=== PATIENT | female | born 1990 | race Caucasian/White ===

== ENCOUNTER → 2020-09-19 12:04 | Outpatient (CLI) | payer OTHER, SELFPAY ==
[2020-09-19 14:01] LABS: HCG,Quantitative 60472 mIU/ml (0-5.42)
== END ==
PROVIDERS: Visit Provider Obstetrics & Gynecology
DX: Z34.90 Encounter for supervision of normal pregnancy, unspecified, unspecified trimester (principal)
CPT/HCPCS: 36415; 84702

== ENCOUNTER → 2020-09-21 11:55 | Outpatient (CLI) | payer OTHER, SELFPAY | PROVIDERS: Visit Provider Obstetrics & Gynecology | DX: Z34.90 Encounter for supervision of normal pregnancy, unspecified, unspecified trimester (principal) | CPT/HCPCS: 36415; 84702 ==

== ENCOUNTER → 2020-10-07 13:00 | Outpatient (CLI) | payer OTHER, SELFPAY ==
--- NOTE | 2020-10-07 13:00 | US_ITS ---
PROCEDURE: US OB <= 14 WEEKS FETUS CLINICAL INDICATION: dates COMPARISON: No exams were available for comparison FINDINGS: An intrauterine gestational sac is present with a pole with a crown-rump length of 3.71cm correlating to gestational age of 10weeks 5days. heart tones are present with an FHR of 164bpm. Yolk sac is noted. There is a normal amount amniotic fluid noted. Both ovaries appear normal in size, the right ovary is slightly hyperechoic compared left. IMPRESSION: Viable early intrauterine gestation approximate age 10 weeks and 5 days Estimated due date by Ultrasound is 04/30/2021 Dictated by: Dr. Cordell Tejada MD 10/07/2020 14:44 Dr. Cordell Tejada MD in [place] 10/07/2020 14:44
== END ==
PROVIDERS: PCP Obstetrics & Gynecology; Visit Provider Obstetrics & Gynecology
DX: Z34.90 Encounter for supervision of normal pregnancy, unspecified, unspecified trimester (principal)
CPT/HCPCS: 76801

== ENCOUNTER → 2020-11-15 14:03 | Outpatient (CLI) | payer OTHER, SELFPAY ==
[2020-11-15 14:38] LABS: Basophils % 0.2 % (0.1-2.0); Eosinophils # 0.1 K/mm3 (0.0-0.4); Eosinophils % 1.4 % (0.1-12.0); Hematocrit 34.7 % (37.0-47.0); Hemoglobin 11.8 g/dL (12.2-16.2); Lymphocytes # 2.2 K/mm3 (0.7-4.5); Lymphocytes % 22.3 % (10-50); Mean Corpuscular HGB Conc 34.1 g/dL (31.8-35.4); Mean Corpuscular Hemoglobin 26.1 pg (27.0-31.2); Mean Corpuscular Volume 76.5 fl (81-99); Mean Platelet Volume 9.6 fl (7.4-10.4); Monocytes # 0.4 K/mm3 (0.1-1.0); Monocytes % 4.2 % (1.7-9.3); Neutrophils % 71.8 % (37.0-80.0); Platelet Count 246 K/mm3 (142-424); Red Blood Count 4.54 M/mm3 (4.20-5.40); Red Cell Distribution Width 16.5 % (11.5-17.5); White Blood Count 9.8 K/mm3 (4.8-10.8)
[2020-11-17 05:30] LABS: HIV Screen 4th Generation wRfx Non Reactive (Non Reactive)
[2020-11-17 10:25] LABS: Hepatitis B Surface Antigen Negative (Negative); Hepatitis C Antibody <0.1 s/co ratio (0.0-0.9); Rubella Antibodies, IgG <0.90 index (Immune >0.99)
[2020-11-17 13:31] LABS: Rapid Plasma Reagin Ab Titer Non Reactive (NonRea<1:1)
== END ==
PROVIDERS: Visit Provider Obstetrics & Gynecology
DX: Z34.90 Encounter for supervision of normal pregnancy, unspecified, unspecified trimester (principal)
CPT/HCPCS: 36415; 85025; 86592; 86703; 86762; 86850; 87340; 87380; G0432

== ENCOUNTER → 2020-12-16 12:39 | Outpatient (CLI) | payer OTHER, SELFPAY ==
--- NOTE | 2020-12-16 12:39 | US_ITS ---
PROCEDURE: US OB >= 14 WEEKS FETUS CLINICAL INDICATION: OB complete Anatomy evaluation COMPARISON: US US OB <= 14 WEEKS FETUS from 10/07/2020 FINDINGS: There is a single live fetus in breech presentation. heart and body motion is noted. Placenta is anterior, grade 1, and low lying. The inferior tip is approximately 1.6 cm from the cervical os. Complete survey performed and was unremarkable on the submitted images as in PACS. No discrete anomalies identified on survey imaging by technologist. Active fetus. Three-vessel cord with satisfactory umbilical cord insertion. 4- chamber heart noted. Survey of brain & ventricles Unremarkable. Face and neck survey unremarkable. Diaphragm and chest views unremarkable. Abdomen: Both kidneys noted and unremarkable. Stomach noted and satisfactory. Spine: Survey of the spine satisfactory with no anomalies identified nor imaged. Both arms and legs noted. Amniotic Fluid: Adequate. Maternal adnexa: No significant findings. Measurements: Average ultrasound age 21weeks. Gestational Age 21weeks Estimated due date by ultrasound age 1204/28/2021. Estimated weight 372g BPD = 21weeks 4days OFD = 21weeks 5days HC = 21weeks AC = 21weeks 4days FL = 19weeks 5days Growth Percentile= 40% Heart Rate = 140bpm Cerebellum = 21weeks 1day Humerus = 21weeks 4days HC/AC is 1.13 CI is 0.77 FL/BPD is 0.61 FL/AC is 0.19 IMPRESSION: Live intrauterine gestation in breech presentation with an average ultrasound age 21 weeks. No obvious anomalies. Anterior low-lying placenta. Please see above for detail Dictated by: Rhett Damian MD 12/16/2020 14:46 Rhett Damian MD in [place] 12/16/2020 14:46
== END ==
PROVIDERS: PCP Nurse Practitioner; Visit Provider Obstetrics & Gynecology
DX: Z34.90 Encounter for supervision of normal pregnancy, unspecified, unspecified trimester (principal)
CPT/HCPCS: 76805

== ENCOUNTER 2021-03-28 13:11 | Outpatient (CLI) | payer OTHER, SELFPAY ==
[2021-03-28 13:42] VITALS: BP 119/83; PULSE 100; RESP 18; TEMP 36.6; O2SAT 96; BMI 44.9
[2021-03-28 16:03] LABS: Microscopic, Urine URINE MICROSCOPIC (MICROSCOPIC)
[2021-03-28 18:47] LABS: Appearance,Urine SL CLOUDY (Clear); Bilirubin,Urine Negative (Negative); Blood, Urine Negative (Negative); Color,Urine DK YELLOW (Yellow); Glucose,Urine (UA) Negative (Negative); Ketones,Urine Negative (Negative); Leukocyte Esterase,Urine Negative (Negative); Nitrate,Urine Negative (Negative); PH,Urine 6.5 (5.0-8.5); Protein,Urine TRACE (Negative)
[2021-03-28 19:40] LABS: Bacteria,Urine 1+ /lpf; RBC,Urine Occasional #/hpf (0-3)
[2021-03-28 22:27] LABS: Amphetamine/Metha Screen,Urine Negative ng/ml (<1000)
[2021-03-28 22:28] LABS: Barbiturates Screen,Urine Negative ng/ml (<200)
[2021-03-28 22:30] LABS: Benzodiazepines Screen,Urine Negative ng/ml (<200); Cannabinoid Screen,Urine Positive ng/ml (<50)
[2021-03-28 22:31] LABS: Cocaine Screen,Urine Negative ng/ml (<300)
[2021-03-28 22:32] LABS: Methadone Screen,Urine Negative ng/ml (<300); Opiate Screen,Urine Negative ng/ml (<300)
[2021-03-28 22:33] LABS: Phencyclidine Screen,Urine Negative ng/ml (<25)
== END 2021-03-28 14:45 | disposition home or self-care (01) ==
LOC: OBOUT 13:13 → OB 13:14
PROVIDERS: PCP Nurse Practitioner; Visit Provider Obstetrics & Gynecology
DX: O26.893 Other specified pregnancy related conditions, third trimester (principal); Z3A.35 35 weeks gestation of pregnancy; R10.2 Pelvic and perineal pain; R11.2 Nausea with vomiting, unspecified; W19.XXXA Unspecified fall, initial encounter
CPT/HCPCS: 59025; 80305; 81001; G0463

== ENCOUNTER → 2021-03-31 15:14 | Outpatient (CLI) | payer OTHER, SELFPAY | PROVIDERS: Visit Provider Obstetrics & Gynecology | DX: Z34.90 Encounter for supervision of normal pregnancy, unspecified, unspecified trimester (principal) | CPT/HCPCS: 86403 ==

== ENCOUNTER → 2021-04-11 15:45 | Outpatient (CLI) | payer OTHER, SELFPAY | PROVIDERS: Visit Provider Obstetrics & Gynecology | DX: Z20.822 Contact with and (suspected) exposure to COVID-19 (principal) | CPT/HCPCS: C9803; U0003; U0005 ==

== ENCOUNTER 2021-04-13 04:34 | Inpatient (IN) | payer OTHER, SELFPAY ==
[2021-04-13 04:43] VITALS: BMI 47.4
[2021-04-13 06:16] LABS: Coronavirus 19, PCR Not Detected (NotDetected); Influenza A, PCR Not Detected (NotDetected); Influenza B, PCR Not Detected (NotDetected)
[2021-04-13 06:16] LABS: Microscopic, Urine URINE MICROSCOPIC (MICROSCOPIC)
[2021-04-13 06:17] VITALS: BP 129/81; PULSE 115; RESP 18; TEMP 36.6; O2SAT 98; BMI 47.4
[2021-04-13 06:24] LABS: Appearance,Urine CLEAR (Clear); Bilirubin,Urine Negative (Negative); Blood, Urine Negative (Negative); Color,Urine YELLOW (Yellow); Glucose,Urine (UA) Negative (Negative); Ketones,Urine Negative (Negative); Leukocyte Esterase,Urine Negative (Negative); Nitrate,Urine Negative (Negative); Protein,Urine Negative (Negative); Specific Gravity, Urine 1.025 (1.005-1.030); Urobilinogen,Urine 0.2 EU/dl (0.2)
[2021-04-13 06:26] LABS: Basophils # 0.1 K/mm3 (0-0.2); Basophils % 0.4 % (0.1-2.0); Eosinophils # 0.1 K/mm3 (0.0-0.4); Eosinophils % 0.6 % (0.1-12.0); Hematocrit 30.4 % (37.0-47.0); Hemoglobin 10.2 g/dL (12.2-16.2); Lymphocytes # 2.8 K/mm3 (0.7-4.5); Lymphocytes % 23.1 % (10-50); Mean Corpuscular HGB Conc 33.4 g/dL (31.8-35.4); Mean Corpuscular Hemoglobin 24.5 pg (27.0-31.2); Mean Corpuscular Volume 73.2 fl (81-99); Monocytes # 0.5 K/mm3 (0.1-1.0); Monocytes % 4.1 % (1.7-9.3); Neutrophils # 8.8 K/mm3 (1.8-7.8); Neutrophils % 71.7 % (37.0-80.0); Platelet Count 421 K/mm3 (142-424); Red Blood Count 4.16 M/mm3 (4.20-5.40); Red Cell Distribution Width 15.6 % (11.5-17.5); White Blood Count 12.2 K/mm3 (4.8-10.8)
[2021-04-13 06:36] LABS: Amphetamine/Metha Screen,Urine Negative ng/ml (<1000)
[2021-04-13 06:37] LABS: Barbiturates Screen,Urine Negative ng/ml (<200)
[2021-04-13 06:38] LABS: Benzodiazepines Screen,Urine Negative ng/ml (<200); Cannabinoid Screen,Urine Negative ng/ml (<50)
[2021-04-13 06:39] LABS: Cocaine Screen,Urine Negative ng/ml (<300)
[2021-04-13 06:40] LABS: Methadone Screen,Urine Negative ng/ml (<300); Opiate Screen,Urine Negative ng/ml (<300)
[2021-04-13 06:41] LABS: Phencyclidine Screen,Urine Negative ng/ml (<25)
[2021-04-13 07:30] VITALS: BP 107/78; PULSE 94; RESP 20; TEMP 36.8; O2SAT 100
--- NOTE | 2021-04-13 09:05 | HMH.HP ---
*Admission Date: 04/13/21 *Chief complaint: induction of labor *History of present illness: 30 yo @ 37 4/7 presented for induction of labor Elevated blood pressure over the past 2 weeks and scheduled for induction of labor with gestational hypertenstion complicated by insufficient care Irregular contractions, no leakage of fluid or vaginal bleeding testing with gestational hypertension reassuring [facility] History I have reviewed the patient's past medical history: Yes Medical History: Denies:: Diabetes Mellitus Type 1, Diabetes Mellitus Type 2 *Have you ever received a pneumonia vaccine?: No *Have you received a flu vaccine this season?: No Other Surgeries: Yes: No Previous Surgery. No: Amputation: No Fractures: No - *Social History Smoking Status: Current every day smoker # Packs/Day (cigarettes): 1 Alcohol Intake: never Substance Use Type: denies use *Occupational Status:: unemployed *Travel in the last 8 weeks: None Family Hx:: No significant family history : 3 Para: 2 Review of Systems - Review of Systems Review of systems:: pertinent systems reviewed and negative unless documented below - *Genitourinary Denies abnormal vaginal bleeding Meds Home Medications Medication Instructions Recorded Confirmed Type docosahexaenoic acid 200 mg capsule 200 mg PO DAILY 11/15/20 04/13/21 History Allergies Allergy/AdvReac Type Severity Reaction Status Date / Time Penicillins [PENICILLINS] Allergy Unknown Verified 04/11/21 15:07 Exam Vital signs and Labs for Last 24 Hours: Temp Pulse Resp BP Pulse Ox 98.2 F 94 H 20 107/78 L 100 04/13/21 07:30 04/13/21 07:30 04/13/21 07:30 04/13/21 07:30 04/13/21 07:30 Laboratory Results - last 24 hr 04/13/21 04:49: Urine Color Yellow, Urine Appearance Clear, Urine pH 6.0, Ur Specific Rudolph 1.025, Urine Protein Negative, Urine Glucose (UA) Negative, Urine Ketones Negative, Urine Blood Negative, Urine Nitrate Negative, Urine Bilirubin Negative, Urine Urobilinogen 0.2, Ur Leukocyte Esterase Negative, Urine RBC None, Urine WBC 3-5, Ur Squamous Epith Cells 3-5, Urine Bacteria None 04/13/21 04:49: Urine Opiates Screen Negative, Urine Methadone Screen Negative, Ur Barbituates Screen Negative, Ur Phencyclidine Scrn Negative, Ur Amphetamines Screen Negative, U Benzodiazepines Scrn Negative, Urine Cocaine Screen Negative, U Marijuana (THC) Screen Negative 04/13/21 05:28: WBC 12.2 H, RBC 4.16 L, Hgb 10.2 L, Hct 30.4 L, MCV 73.2 L, MCH 24.5 L, MCHC 33.4, RDW 15.6, Plt Count 421, MPV 9.0, Neut % (Auto) 71.7, Lymph % (Auto) 23.1, [place] % (Auto) 4.1, Eos % (Auto) 0.6, Baso % (Auto) 0.4, Neut # (Auto) 8.8 H, Lymph # (Auto) 2.8, [place] # (Auto) 0.5, Eos # (Auto) 0.1, Baso # (Auto) 0.1 04/13/21 05:28: SARS-CoV-2 (PCR) Not detected, Influenza A Untype (PCR) Not detected, Influenza Type B (PCR) Not detected 04/13/21 05:28: Blood Type A Positive, Antibody Screen Negative, Crossmatch (AHG) See Detail I & O for Last 24 hours: Intake & Output 04/11/21 04/12/21 04/13/21 04/14/21 11:59 11:59 11:59 11:59 Weight 285 lb - Constitutional no acute distress - *Routine HEENT Exam Head: Present: normocephalic Eye: Absent: conjunctival icterus ENT: Present: mucous membranes moist - *Routine Neck Exam Present: supple. Absent: lymphadenopathy - *Routine Respiratory Exam Present: CTA bilaterally - *Routine Cardiovascular Exam Present: RRR - *Routine Abdominal Exam Present: soft, normoactive bowel sounds. Absent: tenderness - *Routine Rectal Exam Rectal:: deferred - *Routine Genitalia Exam Genitalia:: normal female Comment:: cervix 3/50/-2 AROM with clear fluid IUPC and FSE placed without difficulty or complication - *Routine Extremities Exam Absent: cyanosis, clubbing, edema - *Routine Skin Exam Present: warm. Absent: rash - *Routine Neurological Exam Present: alert, oriented X3 Assessment and Plan
--- NOTE | 2021-04-13 14:12 | HMH.LABNOT ---
Labor Note - Subjective: Date: 04/13/21 Time: 14:12 Comment:: regular contractions cervix 7cm comfortable with epidural tracing reassuring - Objective: Cervical Dilation:: 7 Effacement:: 90% - Assessment: Patient Problems: All Active Problems Tobacco smoking affecting (Acute) Morbid obesity with BMI of 45.0-49.9, adult (Acute) 37 weeks gestation of (Acute) Gestational hypertension (Acute) Insufficient care (Acute) Low lying placenta, antepartum (Acute) tubal ligation planned (Acute) (Acute) Acute otitis media (Acute) Dizziness (Acute) - Plan: Comment:: continue pitocin augmentation anticipate
--- NOTE | 2021-04-13 17:08 | HMH.DN ---
- Delivery Note Delivery Date:: 04/13/21 Delivery Time:: 16:38 Anesthesia Type: Epidural Was labor medically induced?: Yes Induction method: per pitocin protocol Gestational age (weeks): 37 delivered prior to 39 weeks?: Yes Justification for early elective delivery:: Gestational Hypertension Infant Gender: Male at 1 minute: 8 at 5 minutes: 9 Delivery Procedure:: Spontaneous vaginal delivery of liveborn male over intact perineum. Delivery uncomplicated Nuchal cord x 2 reduced at time of delivery; no shoulder dystocia with delivery Infant taken to warmer immediately after delivery, with standard nursing assessment performed Infant Apgars: 8 & 9 Placenta spontaneously expressed and examined; noted to be complete/intact. Vulva, vagina, and cervix inspected; no lacerations present EBL: 300 cc All sponge/needle/instrument counts correct at conclusion of procedure Placental Delivery Description: Spontaneous
[2021-04-14 06:53] LABS: Hematocrit 28.4 % (37.0-47.0); Hemoglobin 9.2 g/dL (12.2-16.2)
[2021-04-14 08:15] VITALS: BP 120/63; PULSE 92; RESP 20; TEMP 36.5; O2SAT 100
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
--- NOTE | 2021-04-14 12:44 | P.PN_ITS ---
Internal Medicine - PN: Subj *Date: 04/14/21 *Time: 12:44 Interval history: PPD #1 No unusual complaints Tolerating regular diet Ambulating and voiding without difficulty lochia appropriate asymptomatic with [id number] anemia Exam Vital signs and Labs for Last 24 Hours: Temp Pulse Resp BP Pulse Ox 97.7 F 92 H 20 120/63 100 04/14/21 08:15 04/14/21 08:15 04/14/21 08:15 04/14/21 08:15 04/14/21 08:15 Laboratory Results - last 24 hr 04/14/21 06:31: Hgb 9.2 L, Hct 28.4 L I & O for Last 24 hours: Intake & Output 04/12/21 04/13/21 04/14/21 04/15/21 11:59 11:59 11:59 11:59 Output Total 1000 / 1000 Balance -1000 / -1000 Weight 285 lb Narrative: CONSTITUTIONAL: no acute distress HEENT: mucous membranes moist PULMONARY: breathing unlabored without audible wheezes CV: no tachycardia or visible JVD; normal LE peripheral pulses ABD: soft, NT/ND, no guarding : fundus firm below umbilicus SKIN: no visible rash or lesions EXT: 1+ edema LEs NEURO: alert/oriented, no altered mental status PSYCH: appropriate mood and demeanor Assessment and Plan (1) 37 weeks gestation of Status: Acute Category: Medical Code(s): Z3A.37 - 37 weeks gestation of (2) Insufficient care Status: Acute Category: Medical Code(s): O09.30 - Supervision of with insufficient care, unspecified trimester (3) Gestational hypertension Status: Acute Category: Medical Code(s): O13.9 - Gestational [- induced] hypertension without significant proteinuria, unspecified trimester (4) Morbid obesity with BMI of 45.0-49.9, adult Status: Acute Category: Medical Code(s): E66.01 - Morbid (severe) obesity due to excess calories; Z68.42 - Body mass index [BMI] 45.0-49.9, adult (5) Tobacco smoking affecting Status: Acute Category: Medical Code(s): O99.330 - Smoking (tobacco) complicating , unspecified trimester (6) Vaginal delivery Status: Acute Category: Medical Code(s): O80 - Encounter for full-term uncomplicated delivery - Assessment and plan all Dx Assessment and Plan for all problems:: Routine care Continue PNV with FeSO4 Anticipate discharge home tomorrow
[2021-04-14 16:19] VITALS: BP 114/62; PULSE 77; RESP 18; TEMP 36.8; O2SAT 98
--- NOTE | 2021-04-15 10:44 | P.PN_ITS ---
Internal Medicine - PN: Subj *Date: 04/15/21 *Time: 10:44 (This is day #1. The patient is afebrile. Vital signs stable. Wound clean. Abdomen soft. Globin 10.2 g. Lochia normal. Breast- feeding well. Blood pressures have remained stable since delivery. Impression: Stable. Plan: Discharge today.) Exam Vital signs and Labs for Last 24 Hours: Temp Pulse Resp BP Pulse Ox 98.3 F 77 18 114/62 98 04/14/21 16:19 04/14/21 16:19 04/14/21 16:19 04/14/21 16:19 04/14/21 16:19 I & O for Last 24 hours: Intake & Output 04/12/21 04/13/21 04/14/21 04/15/21 11:59 11:59 11:59 11:59 Output Total 1000 / 1000 Balance -1000 / -1000 Weight 285 lb Assessment and Plan (1) 37 weeks gestation of Status: Acute Category: Medical Code(s): Z3A.37 - 37 weeks gestation of (2) Insufficient care Status: Acute Category: Medical Code(s): O09.30 - Supervision of with insufficient care, unspecified trimester (3) Gestational hypertension Status: Acute Category: Medical Code(s): O13.9 - Gestational [- induced] hypertension without significant proteinuria, unspecified trimester (4) Morbid obesity with BMI of 45.0-49.9, adult Status: Acute Category: Medical Code(s): E66.01 - Morbid (severe) obesity due to excess calories; Z68.42 - Body mass index [BMI] 45.0-49.9, adult (5) Tobacco smoking affecting Status: Acute Category: Medical Code(s): O99.330 - Smoking (tobacco) complicating , unspecified trimester (6) Vaginal delivery Status: Acute Category: Medical Code(s): O80 - Encounter for full-term uncomplicated delivery
--- NOTE | 2021-04-15 10:47 | HMH.DCSUM ---
General - General Admission date:: 04/13/21 Discharge date: 04/15/21 (This 30-year-old 4, now para 3, AB 1 obese white female was admitted at 37 4/7 weeks for induction because of gestational hypertension. She delivered spontaneously on 04/13/2021 at 1638. The baby was an 8/9, 5 pound 15 ounce 18 inch male infant, who is breast-feeding and is done well. Since delivery, the patient's blood pressures have been stable (114/58 at this time), and she has done well. She is eating and ambulating, and has passed flatus. Her lochia is normal. Her uterine fundus has involuted well. Her abdomen is soft. She is discharged home on the first day on iron and vitamins, and on Tylenol and Motrin, as needed for pain. She is given appropriate instructions as to diet, exercise, and perineal care, and she is to return to Dr. Boswell's office as scheduled for care. Her blood type is A+. Her rubella titer is nonimmune, and she has been vaccinated prior to discharge.) HPI HPI: 30 yo @ 37 4/7 presented for induction of labor Elevated blood pressure over the past 2 weeks and scheduled for induction of labor with gestational hypertenstion complicated by insufficient care Irregular contractions, no leakage of fluid or vaginal bleeding testing with gestational hypertension reassuring Hospital Course Rhogam Administration: Not Indicated Objective Vital signs: Temp Pulse Resp BP Pulse Ox 98.3 F 77 18 114/62 98 04/14/21 16:19 04/14/21 16:19 04/14/21 16:19 04/14/21 16:19 04/14/21 16:19 DS: Diagnosis - Discharge Diagnosis (1) 37 weeks gestation of Status: Acute (2) Insufficient care Status: Acute (3) Gestational hypertension Status: Acute (4) Morbid obesity with BMI of 45.0-49.9, adult Status: Acute (5) Tobacco smoking affecting Status: Acute (6) Vaginal delivery Status: Acute Discharge Plan - Patient Discharge Instructions DIET: advance to your usual diet Additional Instructions: Nothing in the vagina for 6 weeks. No heavy lifting or strenuous activity. Patient Instructions: Depression, Hemorrhage, DI for Labor and Delivery, Vaginal , DI for Pre-eclampsia, [facility] Post Discharge Instructions, Preventing the Spread of Coronavirus Discharge Instructions - Follow up Plan Follow up with: Albertina Boswell MD [Staff Physician] - 05/26/21 9:30 am Condition at discharge:: Stable Home Medications: Home Medications Medication Instructions Recorded Confirmed Type docosahexaenoic acid 200 mg capsule 200 mg PO DAILY 11/15/20 04/13/21 History Prescriptions/Medication Reconciliation: Continued docosahexaenoic acid 200 mg capsule 200 mg PO DAILY - Problem Reconciliation Problems Reviewed?: Yes
== END 2021-04-15 11:35 | disposition home or self-care (01) | DRG 807 ==
PROVIDERS: Admitting Provider Obstetrics & Gynecology; Visit Provider Obstetrics & Gynecology
DX: O13.3 Gestational [pregnancy-induced] hypertension without significant proteinuria, third trimester (principal); Z37.0 Single live birth; Z3A.37 37 weeks gestation of pregnancy; O99.330 Smoking (tobacco) complicating pregnancy, unspecified trimester; F17.210 Nicotine dependence, cigarettes, uncomplicated; O69.81X0 Labor and delivery complicated by cord around neck, without compression, not applicable or unspecified
CPT/HCPCS: 59409; 59025; 80305; 81001; 85014; 85018; 85025; 86850; 90707; 94761; C1758; C9803; G0283; U0003; U0005

== ENCOUNTER 2022-08-27 01:48 | Emergency (ER) | payer OTHER, SELFPAY ==
[2022-08-27 01:49] VITALS: BP 136/91; PULSE 78; RESP 16; TEMP 36.5; O2SAT 98; BMI 38.7
[2022-08-27 02:01] LABS: Microscopic, Urine URINE MICROSCOPIC (MICROSCOPIC)
--- NOTE | 2022-08-27 02:01 | CT_ITS ---
PROCEDURE INFORMATION: Exam: CT Abdomen And Pelvis Without Contrast Exam date and time: 08/27/2022 2:18 AM Age: 31 years old Clinical indication: Abdominal pain; Flank; Left; Additional info: Left abd, flank pain TECHNIQUE: Imaging protocol: Computed tomography of the abdomen and pelvis without contrast. Radiation optimization: All CT scans at this facility use at least one of these dose optimization techniques: automated exposure control; mA and/or kV adjustment per patient size (includes targeted exams where dose is matched to clinical indication); or iterative reconstruction. REPORTING DATA: Count of CT and Cardiac NM exams in prior 12 months: This patient has received 0 known CTs and 0 known cardiac nuclear medicine studies in the 12 months prior to the current study. COMPARISON: No relevant recent comparison exams. FINDINGS: Pancreaticohepatobiliary: Liver: Enlarged liver shows mild diffuse fatty infiltration. No significant intra-or extrahepatic ductal dilation. Gallbladder: Unremarkable without obvious gallstones. Pancreas: Normal in size normal in size and attenuation without peripancreatic fluid or obvious mass. Spleen: Normal in size and attenuation. . Genitourinary: Adrenal gland: No adrenal mass. Kidneys: Punctate 1-2 mm nonobstructive LEFT renal calculus. 3-4 mm mid LEFT ureteric calculus with mild LEFT sided hydronephrosis and hydroureter. Kidneys are otherwise unremarkable. Urinary bladder: Empty urinary bladder. Uterus/ovaries: Uterus is normal, RIGHT ovarian dermoid measuring 4.1 x 4.2 cm. No free fluid in the pelvis. . Gastrointestinal: Bowel: A few colonic diverticula. Note is made of a small hiatal hernia. Prominent air and fluid-filled loops of proximal small bowel in the LEFT upper abdomen likely within normal limits. No free intraperitoneal air or fluid collection. Appendix: A normal APPENDIX is visualized. . Other findings: Aorta: Aorta appears unremarkable without evidence of aortic aneurysm. Lymph nodes: No bulky lymph node enlargement. Soft tissues: Small periumbilical hernia containing fat. IMPRESSION: 1. Obstructive MID LEFT ureteric calculus. 2. Numerous other nonemergent/incidental findings as described. COMMENT: Suboptimal evaluation of bowel loops and abdominal organs due to lack of intravenous and oral contrast.
--- NOTE | 2022-08-27 02:03 | HMH.EDGENADL ---
Discharge Plan Disposition Patient Disposition: Home, Self-Care Condition: Good Prescriptions Prescriptions: New tamsulosin [Flomax] 0.4 mg capsule 0.4 mg PO DAILY Qty: 10 0RF ketorolac 10 mg tablet 10 mg PO Q8H PRN (Reason: pain) Qty: 14 0RF ondansetron 4 mg tablet,disintegrating 4 mg PO Q8H PRN (Reason: nausea and vomiting) 3 Days Qty: 14 0RF hydrocodone-acetaminophen 5-325 mg tablet 1 tab PO Q6H Qty: 14 0RF No Action DHA 200 mg capsule 200 mg PO DAILY Referrals Follow up/Referrals: Yuli Oh APRN [Primary Care Provider] - See instructions Clinical Impressions Clinical Impression: Kidney stone, Dermoid cyst of ovary Instructions Patient Instructions: Kidney Stones -- Adult, DI for Acute Abdominal Pain Print Language Print Language: Peruvian Discharge ED Provider: Isidro Singh General Adult HPI General Chief complaint: Abdominal Pain Stated complaint: Left lower back pain radiating to stomach; vomitin Time Seen by Provider: 08/27/22 04:13 Mode of Arrival: Ambulatory Source of Information: Patient Limitations: No Limitations Description of Symptoms (Recalled from ER Triage Doc. by RN): pt c/o lt flank pain radiating to LLQ and vomitting for one hour prior to arrival History of Present Illness HPI narrative: Patient presents to the emergency department with left-sided abdominal pain which extends into her left flank which started approximate hour prior to arrival. The patient denies any fever, chills, cough or congestion. She does describe nausea, vomiting. Denies any dysuria, hematuria or frequency. Patient states she has had no diarrhea or constipation. Related Data Home Medications Medication Instructions Recorded Confirmed docosahexaenoic acid 200 mg 200 mg PO DAILY Supplement 11/15/20 04/13/21 capsule ( DHA) Previous Rx's Medication Instructions Recorded hydrocodone 5 mg-acetaminophen 325 1 tab PO Q6H #14 tabs 08/27/22 mg tablet ketorolac 10 mg tablet 10 mg PO Q8H PRN pain #14 tabs 08/27/22 ondansetron 4 mg disintegrating 4 mg PO Q8H PRN nausea and 08/27/22 tablet vomiting 3 days #14 tabs tamsulosin 0.4 mg capsule (Flomax) 0.4 mg PO DAILY #10 caps 08/27/22 Allergies Allergy/AdvReac Type Severity Reaction Status Date / Time Penicillins [PENICILLINS] Allergy Unknown Verified 04/11/21 15:07 [facility] Disclaimer: The information contained in this section may have been updated after the patient was seen, as this information can be updated by other users. Social History Smoking Status: Current every day smoker alcohol intake: never substance use type: denies use current occupational status: unemployed Travel in the last 8 weeks: None ROS Obtained: Yes All systems reviewed & no additional complaints except as documented Gastrointestinal Gastrointestingal: Reports abdominal pain, nausea and vomiting Physical Exam General General appearance: alert and other (Obese, uncomfortable appearing) Head Head exam: atraumatic and normocephalic Eye Eye exam: Present normal appearance, PERRL and EOMI Respiratory Respiratory exam: Present normal lung sounds bilaterally Cardiovascular Cardiovascular exam: Present regular rate, normal rhythm and normal heart sounds Abdominal Exam Abdominal exam: Present other (Soft, nondistended, left upper and left lower quadrant abdominal tenderness with guarding. No rebound. Normal bowel sounds.) Extremities Exam Extremities exam: Present normal inspection and full ROM Neurological Exam Neurological exam: Present alert and oriented X3 Psychiatric Psychiatric exam: Present normal affect and normal mood Medical Decision Making Medical Records Medical records reviewed: Yes I reviewed the patient's medical records. Hao Inquiry Pt receiving controlled substance: No Vital Signs: 08/27/22 01:49 Temperature 97.7 F Temp
[2022-08-27 02:04] LABS: Appearance,Urine CLEAR (Clear); Bilirubin,Urine Negative (Negative); Blood, Urine 3+ (Negative); Color,Urine YELLOW (Yellow); Glucose,Urine (UA) Negative (Negative); Ketones,Urine Negative (Negative); Leukocyte Esterase,Urine Negative (Negative); Nitrate,Urine Negative (Negative); PH,Urine 6.5 (5.0-8.5); Protein,Urine Negative (Negative); Urobilinogen,Urine 0.2 EU/dl (0.2)
[2022-08-27 02:05] LABS: Urine Pregnancy, HCG Qual. Negative (Negative)
[2022-08-27 02:10] LABS: Basophils % 0.3 % (0.1-2.0); Eosinophils # 0.2 K/mm3 (0.0-0.4); Eosinophils % 1.3 % (0.1-12.0); Lymphocytes # 3.3 K/mm3 (0.7-4.5); Lymphocytes % 24.4 % (10-50); Mean Corpuscular HGB Conc 32.4 g/dL (31.8-35.4); Mean Corpuscular Hemoglobin 26.2 pg (27.0-31.2); Mean Platelet Volume 8.7 fl (7.4-10.4); Monocytes # 0.6 K/mm3 (0.1-1.0); Monocytes % 4.4 % (1.7-9.3); Neutrophils # 9.5 K/mm3 (1.8-7.8); Neutrophils % 69.5 % (37.0-80.0); Platelet Count 376 K/mm3 (142-424); Red Blood Count 4.94 M/mm3 (4.20-5.40); Red Cell Distribution Width 14.6 % (11.5-17.5); White Blood Count 13.6 K/mm3 (4.8-10.8)
[2022-08-27 02:17] LABS: Alanine Aminotransferase 28 U/L (12-78); Albumin Level 4.5 g/dl (3.5-5.0); Albumin/Globulin Ratio 1.4 (1.1-1.8); Alkaline Phosphatase 69 U/L (38-126); Anion Gap 7.8 mEq/L (5-15); Aspartate Amino Transferase 34 U/L (14-36); Bilirubin,Total 0.3 mg/dl (0.2-1.3); Blood Urea Nitrogen 16 mg/dl (7-17); Calcium 9.2 mg/dl (8.4-10.2); Carbon Dioxide 25 mmol/L (22.0-30.0); Chloride 105 mmol/L (98-107); Creatinine Clearance Estimated 140 mL/min (50-200); Estimated Glomerular Filt Rate 65 ml/min (>60); GFR (African American) 78 ML/MIN (>60); Globulin 3.3 g/dL (1.3-3.2); Glucose 110 mg/dl (74-100); Lipase 133 U/L (23-300); Potassium 3.8 mmoL/L (3.5-5.1); Sodium 134 mmol/L (136-145); Total Protein,Serum 7.8 g/dl (6.3-8.2)
--- NOTE | 2022-08-27 02:18 | PC.NURSE ---
Pt taken to CT scan via wheel-chair at this time.
--- NOTE | 2022-08-27 02:35 | PC.NURSE ---
Pt back to room from ct scan
--- NOTE | 2022-08-27 02:50 | PC.NURSE ---
Pt rounding completed and she reported to be in more pain than before . MD notified and ordered Toradol 30mg IVP. Pt was also given warm blankets and placed around her abd & back and lights dimmed for comfort.
--- NOTE | 2022-08-27 03:17 | PC.NURSE ---
Rechecked pt's pain and it was much improved. She is resting quietly at this time. Updated on CT read status and anticipated wait times. No other needs voiced at this time.
[2022-08-27 04:09] VITALS: BP 131/74; PULSE 88; RESP 17; TEMP 36.7; O2SAT 98
== END 2022-08-27 04:31 | disposition home or self-care (01) ==
PROVIDERS: Emergency Provider Emergency Medicine; PCP Nurse Practitioner
DX: N20.0 Calculus of kidney (principal); F17.200 Nicotine dependence, unspecified, uncomplicated; N13.30 Unspecified hydronephrosis
CPT/HCPCS: 74176; 80053; 81001; 81025; 83690; 85025; 96360; 96374; 96375; 99285; J2405